=== PATIENT | male | born 1995 | race Caucasian/White ===

== ENCOUNTER → 2019-02-21 | Outpatient (CLI) | payer BC ==
[~2019-02-21] MED LIST: NO HOME MEDICATIONS
== END ==
LOC: COL.RAD 07:16
DX: R59.9 Enlarged lymph nodes, unspecified (principal)

== ENCOUNTER 2022-01-29 00:24 | Emergency (ER) | payer BC ==
[~2022-01-29] VITALS: Ht 180.3 cm; Wt 68.2 kg
[2022-01-29 00:58] VITALS: BP 108/73; TEMP 98.1
[2022-01-29] MEDS ORDERED: ZOFRAN 4MG T4 MG/TAB PO (01:11)
[2022-01-29 01:37] VITALS: PULSE 62
== END 2022-01-29 01:37 | disposition home or self-care (01) ==
LOC: COL.ER 00:24
DX: S06.0X1A Concussion with loss of consciousness of 30 minutes or less, initial encounter (principal); W50.1XXA Accidental kick by another person, initial encounter; Y93.71 Activity, boxing